=== PATIENT | female | born 1955 | race Two or more races ===

== ENCOUNTER 2021-12-04 10:06 | Emergency (ER) | payer OTHER ==
[~2021-12-04] VITALS: Ht 160 cm; Wt 70.8 kg
[~2021-12-04 10:06] MED LIST: ATENOLOL50 MG
== END 2021-12-04 17:42 | disposition home or self-care (01) ==
LOC: ER 10:06
DX: R10.2 Pelvic and perineal pain (principal); R10.32 Left lower quadrant pain; K57.90 Diverticulosis of intestine, part unspecified, without perforation or abscess without bleeding; N83.292 Other ovarian cyst, left side; I10 Essential (primary) hypertension

== ENCOUNTER 2024-03-14 14:11 | Emergency (ER) | payer OTHER ==
[~2024-03-14] VITALS: Ht 154.9 cm; Wt 71.7 kg
[2024-03-14] MEDS ORDERED: KETOROLAC TROMETHAMINE 60 MG VIAL IM ONE ×2 (16:45→17:23)
== END 2024-03-14 19:36 ==
LOC: ER 14:13
DX: M25.561 Pain in right knee (principal); I10 Essential (primary) hypertension
CPT/HCPCS: 73560; 96372; 99283; J1885